=== PATIENT | female | born 1995 | race Caucasian/White ===

== ENCOUNTER 2019-02-08 21:05 | Emergency (ER) | payer OTHER, MEDICAID ==
[~2019-02-08] VITALS: Ht 160 cm; Wt 69.0 kg
[2019-02-08] MEDS ORDERED: PRENA1 CHEW TA1.4 MG PO (21:36)
[2019-02-08] MEDS ORDERED: ZOLOFT25 MG PO (21:36)
[2019-02-08] MEDS ORDERED: PREPARATION H1 EAC2 RECTAL (21:37)
[2019-02-08] MEDS ORDERED: VITAMIN E400 UNIT PO (21:37)
[2019-02-08 22:40] LABS: ABSOLUTE EOSINOPHILS 0.2 thou/uL (0.0-0.7); ABSOLUTE LYMPHOCYTES 1.8 thou/uL (0.8-5.3); ABSOLUTE MONOCYTES 1.1 thou/uL (0.0-1.2); ABSOLUTE NEUTROPHILS 7.5 thou/uL (1.6-8.1); BASOPHILS 0.4 %; HEMATOCRIT 38.7 % (37.0-47.0); HEMOGLOBIN 13.1 gm/dL (12.0-15.0); LYMPHOCYTES 16.6 %; MCH 28.5 pg (26.0-34.0); MCHC 33.9 g/dL (28.0-37.0); MCV 83.9 fL (80.0-100.0); MONOCYTES 10.2 %; MPV 6.6 fl. (7.2-11.1); NUCLEATED RBCS 0 /100WBC; PLATELET COUNT* 253 thou/uL (150-400); POLYS 70.8 %; RBC 4.61 mil/uL (4.20-5.00); RDW-CV 13.5 % (10.5-14.5); WBC 10.6 thou/uL (4.0-11.0)
[2019-02-08 22:48] LABS: CALCIUM 9.2 mg/dL (8.5-10.1); CREATININE 0.9 mg/dL (0.6-1.3); POTASSIUM 3.6 mmol/L (3.5-5.1)
[2019-02-08 22:52] LABS: ALBUMIN 3.9 g/dL (3.4-5.0); TOTAL BILIRUBIN 0.2 mg/dL (<0.1-1.0); TOTAL PROTEIN 7.6 g/dL (6.4-8.2)
[2019-02-08] MEDS ORDERED: BENZTROPINE MES1 MG PO (23:48)
[2019-02-09 00:09] VITALS: BP 108/64
== END 2019-02-09 00:10 | disposition home or self-care (01) ==
LOC: M.ERS 21:05
PROVIDERS: Personal Emergency Response Attendant
DX: G25.71 Drug induced akathisia (principal); T43.225A Adverse effect of selective serotonin reuptake inhibitors, initial encounter; Y92.9 Unspecified place or not applicable; F41.9 Anxiety disorder, unspecified